=== PATIENT | male | born 1975 | race Caucasian/White ===

== ENCOUNTER 2017-02-12 04:45 | Emergency (ER) | payer SELFPAY ==
[2017-02-12] MEDS ORDERED: ASPIRIN 81 MG TABLET, CHEWABLE PO ONE (04:58)
--- NOTE | 2017-02-12 05:21 | ER Document Report ---
ED Medical Screen (RME) - General Chief Complaint: Chest Pain > 30 Stated Complaint: CHEST PAIN Time Seen by Provider: 02/12/17 05:15 Notes: 41-year-old obese male with a history of hypertension and diabetes type 2 that is not currently medicated, chief complaint of chest pain in the left side of his chest going toward his back, symptoms started while moving water bottles about 3 or so hours ago. Reports pain is worse when taking a deep breath. Denies nausea or vomiting, cough, fever, or history of the same. Denies any cardiac history. Does not smoke. Reports current pain. TRAVEL OUTSIDE OF THE [place] IN LAST 30 DAYS: No Past Medical History Renal/ Medical History: Denies: Hx Peritoneal Dialysis Physical Exam - Vital signs Vitals: Temp Pulse Resp BP Pulse Ox 98.9 F 89 20 133/88 H 96 02/12/17 05:01 02/12/17 05:01 02/12/17 05:01 02/12/17 05:01 02/12/17 05:01 - Respiratory Chest status: Tender - Tender over the left side of the chest Breath sounds: Normal. No: Decreased air movement, Rales, Rhonchi, Stridor, Wheezing - Cardiovascular Rhythm: Regular. No: Tachycardia Heart sounds: Normal auscultation, S1 appreciated, S2 appreciated Course - Re-evaluation Re-evalutation: I have greeted and performed a rapid initial assessment of this patient. A comprehensive ED assessment and evaluation of the patient, analysis of test results and completion of the medical decision making process will be conducted by additional ED providers. - Vital Signs Vital signs: Temp Pulse Resp BP Pulse Ox 98.9 F 89 20 133/88 H 96 02/12/17 05:01 02/12/17 05:01 02/12/17 05:01 02/12/17 05:01 02/12/17 05:01
[2017-02-12 05:38] LABS: ABSOLUTE BASOPHILS # (AUTO) 0.1 10^3/uL (0.0-0.2); ABSOLUTE EOSINOPHILS # (AUTO) 0.2 10^3/uL (0.0-0.6); ABSOLUTE LYMPHOCYTES (AUTO) 2.6 10^3/uL (0.5-4.7); ABSOLUTE MONOCYTES (AUTO) 0.9 10^3/uL (0.1-1.4); ABSOLUTE NEUT (AUTO) 6.7 10^3/uL (1.7-8.2); BASOPHILS % (AUTO) 0.9 % (0-2); EOSINOPHILS % (AUTO) 2.1 % (0-6); HEMATOCRIT 44.2 % (37.9-51.0); HEMOGLOBIN 14.7 g/dL (13.5-17.0); HGB HCT DIFFERENCE -0.1; LYMPHOCYTES % (AUTO) 24.6 % (13-45); MEAN CORPUSCULAR HEMOGLOBIN 28.1 pg (27.0-33.4); MEAN CORPUSCULAR HGB CONC 33.2 g/dL (32.0-36.0); MEAN CORPUSCULAR VOLUME 85 fl (80-97); MONOCYTES % (AUTO) 8.4 % (3-13); RED BLOOD COUNT 5.21 10^6/uL (4.35-5.55); RED CELL DISTRIBUTION WIDTH 14.1 % (11.5-14.0); WHITE BLOOD COUNT 10.5 10^3/uL (4.0-10.5)
--- NOTE | 2017-02-12 05:44 | RADIOLOGY REPORT (SQ) ---
EXAM DESCRIPTION: CHEST SINGLE VIEW COMPLETED DATE/TIME: 02/12/2017 5:36 am REASON FOR STUDY: cp COMPARISON: None. EXAM PARAMETERS: NUMBER OF VIEWS: One view. TECHNIQUE: Single frontal radiographic view of the chest acquired. RADIATION DOSE: NA LIMITATIONS: None. FINDINGS: LUNGS AND PLEURA: No consolidation, pneumothorax or pleural effusion. MEDIASTINUM AND HILAR STRUCTURES: No masses. Contour normal. HEART AND VASCULAR STRUCTURES: Heart normal in size. Normal vasculature. BONES: No acute findings. HARDWARE: None in the chest. IMPRESSION: No acute radiographic finding in the chest. TECHNICAL DOCUMENTATION: JOB ID: [id number]
[2017-02-12 05:49] LABS: ALANINE AMINOTRANSFERASE 40 U/L (21-72); ALBUMIN 3.9 g/dL (3.5-5.0); ALKALINE PHOSPHATASE 83 U/L (38-126); ANION GAP 8 (5-19); ASPARTATE AMINO TRANSFERASE 17 U/L (17-59); BILIRUBIN,DIRECT 0.3 mg/dL (0.0-0.4); BILIRUBIN,TOTAL 0.5 mg/dL (0.2-1.3); BLOOD UREA NITROGEN 18 mg/dL (7-20); CALCIUM 9.8 mg/dL (8.4-10.2); CARBON DIOXIDE 32 mmol/L (22-30); CHLORIDE 99 mmol/L (98-107); CREATINE KINASE 67 U/L (55-170); CREATININE RESULT 0.89 mg/dL (0.52-1.25); GLUCOSE 328 mg/dL (75-110); POTASSIUM 4.3 mmol/L (3.6-5.0); SODIUM 138.8 mmol/L (137-145)
[2017-02-12 06:02] LABS: CREATINE KINASE MB 0.38 ng/mL (<4.55)
[2017-02-12 06:05] LABS: TROPONIN I < 0.012 ng/mL
[2017-02-12] MEDS ORDERED: HYDROCHLOROTHIAZIDE 12.5 MG CAPSULE PO ONE (06:20)
--- NOTE | 2017-02-12 06:20 | ER Document Report ---
ED Cardiac - General Information source: Patient TRAVEL OUTSIDE OF THE [place] IN LAST 30 DAYS: No - HPI Patient complains to provider of: Chest pain, Chest tightness Quality of pain: Sharp, Stabbing, Tightness Chest pain radiation location: Left shoulder, Back Cardiac risk factors: Diabetes, Hypertension, + Family history Associated symptoms: Other - see above <CAILIN AJ - Last Filed: 02/12/17 06:44> <ANASTACIA MCMAHON - Last Filed: 02/12/17 10:53> - General Chief Complaint: Chest Pain > 30 Stated Complaint: CHEST PAIN Time Seen by Provider: 02/12/17 05:15 Notes: Patient is a 41 year old male who presents to the ED with complaints of a chest pain that radiates around his under arm and left shoulder with onset approximately 0300 this morning. Patient states that he was moving 1 gallon jugs from the floor into a cupboard. Patient states initially the pain was sharp and stabbing but then turned into a "bear hugging" tightness sensation. Patient states it is painful to breath. He was nauseous at first but denies any nausea currently. Patient has a history of hypertension and diabetes, he is on Metformin, Novolog and HTCZ however states that he has not been able to take his medication due to a lapse in his insurance. He has still been checking his sugar levels and states he has been running around 200. (CAILIN AJ) - Related Data Allergies/Adverse Reactions: No Known Allergies Allergy (Verified 02/12/17 05:27) Past Medical History - General Information source: Patient - Social History Smoking Status: Never Smoker Chew tobacco use (# tins/day): No Frequency of alcohol use: None Drug Abuse: None Family History: CAD, DM, Hypertension Patient has suicidal ideation: No Patient has homicidal ideation: No - Past Medical History Cardiac Medical History: Reports: Hx Hypertension Endocrine Medical History: Reports: Hx Diabetes Mellitus Type 2 Renal/ Medical History: Reports: Hx Kidney Stones Past Surgical History: Reports: Hx Cholecystectomy - Immunizations Hx Diphtheria, Pertussis, Tetanus Vaccination: No <CAILIN AJ - Last Filed: 02/12/17 06:44> Review of Systems - Review of Systems Constitutional: No symptoms reported EENT: No symptoms reported Cardiovascular: See HPI, Chest pain Respiratory: See HPI, Hurts to breathe Gastrointestinal: See HPI, Nausea Genitourinary: No symptoms reported Male Genitourinary: No symptoms reported Musculoskeletal: No symptoms reported Skin: No symptoms reported Hematologic/Lymphatic: No symptoms reported Neurological/Psychological: No symptoms reported <MADAICAILIN - Last Filed: 02/12/17 06:44> Physical Exam - General General appearance: Appears well, Alert In distress: None - HEENT Head: Normocephalic, Atraumatic Eyes: Normal Extraocular movements intact: Yes Pupils: PERRL - Respiratory Respiratory status: No respiratory distress Chest status: Tender - very noticeably tender over left chest wall around anterior chest wall into the scapular region Breath sounds: Normal Chest palpation: Tender - very noticeably tender over left chest wall around anterior chest wall into the scapular region - Cardiovascular Rhythm: Regular Heart sounds: Normal auscultation Murmur: No - Abdominal Inspection: Normal Tenderness: Nontender - Back Back: Tender - in scapular region - Extremities General upper extremity: Normal inspection, Normal ROM General lower extremity: Normal inspection, Normal ROM - Neurological Neuro grossly intact: Yes - Psychological Associated symptoms: Normal affect, Normal mood - Skin Skin Temperature: Warm Skin Moisture: Dry Skin Color: Normal <MADAICAILIN - Last Filed: 02/12/17 06:44> - Vital signs Vitals: Temp Pulse Resp BP Pulse Ox 98.9 F 89 20 133/88 H 96 02/12/17 05:01 02/12/17 05:01 02/12/17 05:01 02/12/17 05:01 02/12/17 05:01 Course - Laboratory Result Diagrams: 02/12/17 05:22 02/12/17 05:22 <CAILIN AJ - Last Filed: 02/12/17 06:44> - Laboratory Result Diagrams: 02/12/17 05:22 02/12/17 05:22 <ANASTACIA MCMAHON - Last Filed: 02/12/17 10:53> - Re-evaluation Re-evalutation: 02/12/17 10:26 Pleasant 41-year-old male with clear tenderness through his left chest wall around to his left scapula. This appears to be clearly musculoskeletal, however he has risk factors, including hypertension, diabetes, and a notable family history. Initial EKG and troponin were negative. The patient remained in the emergency department for a second troponin which was also negative. The patient has been unable to obtain his medications for diabetes and hypertension due to loss of insurance and financial issues. We have treated the patient with metformin and hydrochlorothiazide along with a small dose of metoprolol today. He also received a small dose of insulin. His sugar decreased into the 200s with 1 L of normal saline. The patient has ongoing tenderness. I discussed the case with Dr. Posadas, cardiology. He is happy to have the patient seen in his office on Wednesday. I will discharge him home with follow-up with prescriptions for metformin and hydrochlorothiazide, the medications that he was taking previously.. (ANASTACIA MCMAHON) - Vital Signs Vital signs: Temp Pulse Resp BP Pulse Ox 98.9 F 89 18 138/81 H 99 02/12/17 05:01 02/12/17 05:01 02/12/17 09:08 02/12/17 09:17 02/12/17 09:17 - Laboratory Laboratory results interpreted by me: 02/12/17 02/12/17 02/12/17 05:22 05:22 09:18 RDW 14.1 H Carbon Dioxide 32 H Glucose 328 H POC Glucose 252 H Discharge <CAILIN AJ - Last Filed: 02/12/17 06:44> <ANASTACIA MCMAHON - Last Filed: 02/12/17 10:53> - Discharge Condition: Good Disposition: HOME, SELF-CARE Instructions: Chest Wall Pain ([facility]) Additional Instructions: Your EKG and cardiac blood tests appear to be okay. You have notable tenderness on exam of your left chest wall and left upper back. Because of your family history and other risk factors, follow-up with a research administrator for reevaluation and consideration for stress testing. If you have any worsening chest pain, shortness of breath, or any other concerns, please return to the emergency department immediately for reevaluation. Receiving a prescription for Metformin and hydrochlorothiazide, medications that he previously took. Please resume these medications. Prescriptions: Hydrochlorothiazide 25 mg PO DAILY #30 tablet Metformin HCl [Glucophage 500 mg Tablet] 1,000 mg PO BID #60 tablet Referrals: HARINI POSADAS MD [ACTIVE STAFF] - Follow up in 3-5 days JERI CARTER MD [HONORARY] - Follow up in 3-5 days Scribe Attestation: 02/12/17 10:53 I personally performed the services described in the documentation, reviewed and edited the documentation which was dictated to the scribe in my presence, and it accurately records my words and actions. (ANASTACIA MCMAHON) Scribe Documentation - Scribe Written by Mele:: mele Shin, 02/12/2017, 0615 acting as scribe for :: Adriana <CAILIN AJ - Last Filed: 02/12/17 06:44>
[2017-02-12] MEDS ORDERED: METOPROLOL TARTRATE 25 MG TABLET PO ONE (06:21)
[2017-02-12] MEDS ORDERED: METFORMIN HCL 500 MG TABLET PO ONE (06:22)
[2017-02-12] MEDS ORDERED: NORMAL SALINE 1000 ML 1,000 ML IV ONE (06:29)
[2017-02-12] MEDS ORDERED: INSULIN REG, HUMAN 100 UNIT/ML 3 ML VIAL (PYX) SUBCUT ONE (07:40)
--- NOTE | 2017-02-12 08:00 | EKG REPORT ---
SEVERITY:- NORMAL ECG - SINUS RHYTHM : Confirmed by: Matt Brooks MD 12-Feb-2017 07:59:33
[2017-02-12 11:13] VITALS: BP 126/76
== END 2017-02-12 11:28 | disposition home or self-care (01) ==
LOC: ER 04:45
DX: R07.89 Other chest pain (principal); I10 Essential (primary) hypertension; T50.2X6A Underdosing of carbonic-anhydrase inhibitors, benzothiadiazides and other diuretics, initial encounter; E11.9 Type 2 diabetes mellitus without complications; T38.3X6A Underdosing of insulin and oral hypoglycemic [antidiabetic] drugs, initial encounter; Z91.120 Patient's intentional underdosing of medication regimen due to financial hardship; Z91.14 Patient's other noncompliance with medication regimen
CPT/HCPCS: 93005; 99285; 36415; 82553; 82962; 82550; 85025; 80053; 84484; 71010; 93010; J1815; J7030

== ENCOUNTER 2018-08-02 18:10 | Emergency (ER) | payer SELFPAY ==
[2018-08-02] MEDS ORDERED: KETOROLAC TROMETHAMINE INJ/PF 30 MG/1 ML SDV IV ONE (18:57)
--- NOTE | 2018-08-02 18:58 | ER Document Report ---
ED Medical Screen (RME) - General Chief Complaint: Flank Pain Stated Complaint: BACK PAIN Time Seen by Provider: 08/02/18 18:55 Notes: 42 years old male presents today with left flank pain radiating to the groin and left side of the abdomen for about a day and a half. But for the last 3-1/2 weeks was having lower back pain claims that it is radiating to the upper back. He is a sedentary worker. History of diabetes and hypertension. The pain is moderate to severe at times. Denies any hematuria or dysuria frequency or urgency. Denies any nausea vomiting. Left-sided abdominal tenderness noted on palpation. TRAVEL OUTSIDE OF THE [place] IN LAST 30 DAYS: No - Related Data Allergies/Adverse Reactions: No Known Allergies Allergy (Verified 08/02/18 18:56) Past Medical History - Social History Chew tobacco use (# tins/day): No Frequency of alcohol use: None - Past Medical History Cardiac Medical History: Reports: Hx Hypertension Endocrine Medical History: Reports: Hx Diabetes Mellitus Type 2 Renal/ Medical History: Reports: Hx Kidney Stones. Denies: Hx Peritoneal Dialysis Past Surgical History: Reports: Hx Cholecystectomy - Immunizations Hx Diphtheria, Pertussis, Tetanus Vaccination: No Physical Exam - Vital signs Vitals: Temp Pulse Resp BP Pulse Ox 97.9 F 95 16 179/97 H 97 08/02/18 18:17 08/02/18 18:17 08/02/18 18:17 08/02/18 18:17 08/02/18 18:17 Course - Vital Signs Vital signs: Temp Pulse Resp BP Pulse Ox 97.9 F 95 16 179/97 H 97 08/02/18 18:17 08/02/18 18:17 08/02/18 18:17 08/02/18 18:17 08/02/18 18:17
[2018-08-02 19:34] LABS: APPEARANCE,URINE CLEAR; BILIRUBIN,URINE NEGATIVE (NEGATIVE); COLOR,URINE YELLOW; GLUCOSE, URINE 150 mg/dL (NEGATIVE); KETONES,URINE NEGATIVE (NEGATIVE); LEUKOCYTE ESTERASE,URINE NEGATIVE (NEGATIVE); NITRITE,URINE NEGATIVE (NEGATIVE); PROTEIN,URINE NEGATIVE (NEGATIVE); URINE SPECIFIC GRAVITY 1.025; UROBILINOGEN,URINE NEGATIVE mg/dL (<2.0)
--- NOTE | 2018-08-02 19:38 | RADIOLOGY REPORT (SQ) ---
EXAM DESCRIPTION: KUB/ABDOMEN (SINGLE VIEW) COMPLETED DATE/TIME: 08/02/2018 7:24 pm REASON FOR STUDY: Abdominal pain COMPARISON: None. NUMBER OF VIEWS: One view. TECHNIQUE: Supine radiographic image of the abdomen acquired. LIMITATIONS: None. FINDINGS: BOWEL GAS PATTERN: Normal bowel gas pattern. No dilated loops. CALCIFICATIONS: No suspicious calcifications. SOFT TISSUES: No gross mass or suggestion of organomegaly. HARDWARE: None in the abdomen. BONES: No acute fracture. No worrisome bone lesions. OTHER: No other significant finding. IMPRESSION: NO RADIOGRAPHIC EVIDENCE FOR ACUTE ABDOMINAL DISEASE. TECHNICAL DOCUMENTATION: JOB ID: [id number]- All Rights Reserved Reading location - IP/workstation name: [email or web address]
[2018-08-02 20:03] LABS: ABSOLUTE BASOPHILS # (AUTO) 0.1 10^3/uL (0.0-0.2); ABSOLUTE EOSINOPHILS # (AUTO) 0.2 10^3/uL (0.0-0.6); ABSOLUTE MONOCYTES (AUTO) 0.5 10^3/uL (0.1-1.4); ABSOLUTE NEUT (AUTO) 3.8 10^3/uL (1.7-8.2); BASOPHILS % (AUTO) 1.1 % (0-2); EOSINOPHILS % (AUTO) 3.5 % (0-6); HEMATOCRIT 41.1 % (37.9-51.0); HEMOGLOBIN 14.1 g/dL (13.5-17.0); LYMPHOCYTES % (AUTO) 30.5 % (13-45); MEAN CORPUSCULAR HEMOGLOBIN 28.2 pg (27.0-33.4); MEAN CORPUSCULAR HGB CONC 34.4 g/dL (32.0-36.0); MEAN CORPUSCULAR VOLUME 82 fl (80-97); MONOCYTES % (AUTO) 7.6 % (3-13); PLATELET COUNT 243 10^3/uL (150-450); RED BLOOD COUNT 5.01 10^6/uL (4.35-5.55); RED CELL DISTRIBUTION WIDTH 13.8 % (11.5-14.0); SEGMENTED NEUTROPHILS % (AUTO) 57.3 % (42-78); TOTAL CELLS COUNTED % (AUTO) 100 %; WHITE BLOOD COUNT 6.6 10^3/uL (4.0-10.5)
--- NOTE | 2018-08-02 20:04 | ER Document Report ---
ED GI/ - General Chief Complaint: Flank Pain Stated Complaint: BACK PAIN Time Seen by Provider: 08/02/18 18:55 Primary Care Provider: [facility] [Provider Group] - Follow up as needed [facility] [Provider Group] - Follow up as needed Mode of Arrival: Ambulatory Information source: Patient Notes: Patient presents complaining of left flank pain that wraps around left lateral side to left side of abdomen patient also complains of back pain that goes up to the left thoracic area. Patient states he had pain symptoms for about 3-1/2 weeks. Patient denies any fever, nausea vomiting or diarrhea. Patient does report some urinary frequency but denies any dysuria. TRAVEL OUTSIDE OF THE [place] IN LAST 30 DAYS: No - HPI Patient complains to provider of: Abdominal pain, Flank pain. No: Diarrhea, Testicular pain, Vomiting Onset: Other - 3-1/2 weeks Timing/Duration: Persistent Quality of pain: Achy Pain Level: 4 Location: LUQ, LLQ, Left flank. No: Left testicle Sexual history: Active Associated symptoms: Urinary frequency. denies: Constipation, Diarrhea, Dysuria, Fever, Loss of appetite, Nausea, Urinary hesitancy, Urinary retention, Urinary urgency, Vomiting Exacerbated by: Denies Relieved by: Denies Similar symptoms previously: No Recently seen / treated by doctor: No - Related Data Allergies/Adverse Reactions: No Known Allergies Allergy (Verified 08/02/18 19:36) Past Medical History - General Information source: Patient - Social History Smoking Status: Never Smoker Chew tobacco use (# tins/day): No Frequency of alcohol use: None Drug Abuse: None Occupation: travel agent Lives with: Spouse/Significant other Family History: CAD, DM, Hypertension Patient has suicidal ideation: No Patient has homicidal ideation: No - Past Medical History Cardiac Medical History: Reports: Hx Hypertension Endocrine Medical History: Reports: Hx Diabetes Mellitus Type 2 Renal/ Medical History: Reports: Hx Kidney Stones. Denies: Hx Peritoneal Dialysis Past Surgical History: Reports: Hx Cholecystectomy - Immunizations Hx Diphtheria, Pertussis, Tetanus Vaccination: No Review of Systems - Review of Systems Constitutional: No symptoms reported. denies: Fever, Recent illness EENT: No symptoms reported Cardiovascular: No symptoms reported. denies: Chest pain Respiratory: No symptoms reported. denies: Cough, Short of breath Gastrointestinal: Abdominal pain. denies: Diarrhea, Nausea, Vomiting, Poor appetite Genitourinary: Frequency, Flank pain. denies: Dysuria Male Genitourinary: No symptoms reported Musculoskeletal: Back pain Skin: No symptoms reported Hematologic/Lymphatic: No symptoms reported Neurological/Psychological: No symptoms reported. denies: Weakness Physical Exam - Vital signs Vitals: Temp Pulse Resp BP Pulse Ox 97.9 F 95 16 179/97 H 97 08/02/18 18:17 08/02/18 18:17 08/02/18 18:17 08/02/18 18:17 08/02/18 18:17 - General General appearance: Appears well, Alert In distress: None - HEENT Head: Normocephalic, Atraumatic Eyes: Normal Conjunctiva: Normal Nasal: Normal Mouth/Lips: Normal Mucous membranes: Normal Neck: Normal, Supple. No: Lymphadenopathy - Respiratory Respiratory status: No respiratory distress Chest status: Nontender Breath sounds: Normal. No: Rales, Rhonchi, Stridor, Wheezing Chest palpation: Normal - Cardiovascular Rhythm: Regular Heart sounds: S1 appreciated, S2 appreciated Murmur: No - Abdominal Inspection: Normal, Morbidly Obese Distension: No distension Bowel sounds: Normal Tenderness: Tender - L side abd, L lateral side Organomegaly: No organomegaly - Back Back: CVA tenderness - left - Extremities General upper extremity: Normal inspection, Normal ROM General lower extremity: Normal inspection, Normal ROM - Neurological Neuro grossly intact: Yes Cognition: Normal [place] Coma Scale Eye Opening: Spontaneous [place] Coma Scale Verbal: Oriented [place] Coma Scale Motor: Obeys Commands [place] Coma Scale Total: 15 - Psychological Associated symptoms: Normal affect, Normal mood - Skin Skin Temperature: Warm Skin Moisture: Dry Skin Color: Normal Course - Re-evaluation Re-evalutation: 08/02/18 22:42 Patient with essentially benign diagnostic evaluation with the exception of mildly elevated glucose. No concern for DKA. Patient presents with abdominal pain without signs of peritonitis or other life-threatening or serious etiology. The patient presents with low back pain without signs of spinal cord compression, cauda equina syndrome, infection, aneurysm, or other serious etiology. The patient is neurologically intact. Given the extremely risk of these diagnoses further testing and evaluation for these possibilities does not appear to be indicated at this time. Patient has been instructed to return if the symptoms worsen or change in any way. - Vital Signs Vital signs: Temp Pulse Resp BP Pulse Ox 98.7 F 83 18 154/96 H 96 08/02/18 22:54 08/02/18 22:54 08/02/18 22:54 08/02/18 22:54 08/02/18 22:54 - Laboratory Result Diagrams: 08/02/18 19:36 08/02/18 19:36 Laboratory results interpreted by me: 08/02/18 08/02/18 18:30 19:36 Glucose 291 H Urine Glucose (UA) 150 H Urine Ascorbic Acid 40 H 08/02/18 22:42 Labs- Entire Visit 08/02/18 08/02/18 08/02/18 18:30 19:36 19:36 WBC 6.6 RBC 5.01 Hgb 14.1 Hct 41.1 MCV 82 MCH 28.2 MCHC 34.4 RDW 13.8 Plt Count 243 Seg Neutrophils % 57.3 Lymphocytes % 30.5 Monocytes % 7.6 Eosinophils % 3.5 Basophils % 1.1 Absolute Neutrophils 3.8 Absolute Lymphocytes 2.0 Absolute Monocytes 0.5 Absolute Eosinophils 0.2 Absolute Basophils 0.1 Sodium 138.9 Potassium 4.2 Chloride 101 Carbon Dioxide 30 Anion Gap 8 BUN 13 Creatinine 0.69 Est GFR ( Amer) > 60 Est GFR (Non-Af Amer) > 60 Glucose 291 H Calcium 9.9 Total Bilirubin 0.5 Direct Bilirubin 0.2 Neonat Total Bilirubin Not Reportable Neonat Direct Bilirubin Not Reportable Neonat Indirect Bili Not Reportable AST 26 ALT 34 Alkaline Phosphatase 81 Total Protein 7.0 Albumin 3.9 Lipase 72.4 Urine Color YELLOW Urine Appearance CLEAR Urine pH 5.0 Ur Specific [place] 1.025 Urine Protein NEGATIVE Urine Glucose (UA) 150 H Urine Ketones NEGATIVE Urine Blood NEGATIVE Urine Nitrite NEGATIVE Urine Bilirubin NEGATIVE Urine Urobilinogen NEGATIVE Ur Leukocyte Esterase NEGATIVE Urine WBC (Auto) 1 Urine RBC (Auto) 0 Urine Mucus (Auto) OCC Urine Ascorbic Acid 40 H - Diagnostic Test Radiology reviewed: Image reviewed, Reports reviewed Discharge - Discharge Clinical Impression: Abdominal pain Qualifiers: Abdominal location: unspecified location Qualified Code(s): R10.9 - Unspecified abdominal pain Chronic back pain Qualifiers: Back pain location: back pain in unspecified location Back pain laterality: unspecified Qualified Code(s): M54.9 - Dorsalgia, unspecified Condition: Stable Disposition: HOME, SELF-CARE Instructions: Abdominal Pain ([facility]), Antispasmodics ([facility]), Low Back Pain ([facility]), Oral Narcotic Medication ([facility]) Additional Instructions: Return immediately for any new or worsening symptoms Followup with your primary care provider, call tomorrow to make a followup appointment Prescriptions: Dicyclomine HCl [Bentyl 20 mg Tablet] 20 mg PO QID PRN #12 tablet PRN Reason: Polyethylene Glycol 3350 [Miralax] 17 gm PO DAILY #119 gm Referrals: [facility] [Provider Group] - Follow up as needed [facility] [Provider Group] - Follow up as needed
[2018-08-02] MEDS ORDERED: MORPHINE SULFATE 10 MG/ML INJ IV ONE (20:07)
[2018-08-02 20:19] LABS: ALANINE AMINOTRANSFERASE 34 U/L (21-72); ALBUMIN 3.9 g/dL (3.5-5.0); ALKALINE PHOSPHATASE 81 U/L (38-126); ANION GAP 8 (5-19); ASPARTATE AMINO TRANSFERASE 26 U/L (17-59); BILIRUBIN,DIRECT 0.2 mg/dL (0.0-0.4); BILIRUBIN,TOTAL 0.5 mg/dL (0.2-1.3); BLOOD UREA NITROGEN 13 mg/dL (7-20); CALCIUM 9.9 mg/dL (8.4-10.2); CARBON DIOXIDE 30 mmol/L (22-30); CHLORIDE 101 mmol/L (98-107); GLUCOSE 291 mg/dL (75-110); LIPASE 72.4 U/L (23-300); POTASSIUM 4.2 mmol/L (3.6-5.0); SODIUM 138.9 mmol/L (137-145)
[2018-08-02] MEDS ORDERED: NORMAL SALINE 1000 ML 1,000 ML IV ONE (20:39)
[2018-08-02] MEDS ORDERED: INSULIN REG, HUMAN 100 UNIT/ML 3 ML VIAL (PYX) SUBCUT ONE (20:52)
--- NOTE | 2018-08-02 20:53 | RADIOLOGY REPORT (SQ) ---
EXAM DESCRIPTION: XR CHEST 2 VIEWS COMPLETED DATE/TME: 08/02/2018 20:00 CLINICAL HISTORY: 42 years, Male, L thoracic pain COMPARISON: None. NUMBER OF VIEWS: TECHNIQUE: LIMITATIONS: None. FINDINGS: No evidence of pulmonary infiltrate or pleural effusion. The heart and mediastinum are unremarkable. Pulmonary vascularity appears normal. IMPRESSION: No acute finding. copyright 2010 [employer])- All Rights Reserved
--- NOTE | 2018-08-02 21:52 | RADIOLOGY REPORT (SQ) ---
CT ABDOMEN PELVIS WITH IV CONTRAST HISTORY: Left flank pain. COMPARISON: None. TECHNIQUE: CT scan of the abdomen and pelvis with IV contrast. This exam was performed according to our departmental dose-optimization program, which includes automated exposure control, adjustment of the mA and/or kV according to patient size and/or use of iterative reconstruction technique. FINDINGS: The lung bases are clear. No pleural or pericardial effusions. There is no hiatal hernia. Hepatic steatosis. The gallbladder is not seen. The spleen, pancreas, adrenal glands, and kidneys are unremarkable. No obstructing urinary stones or hydronephrosis. The pelvic organs are also unremarkable. No small bowel obstruction. The appendix is not visualized. There is no evidence of acute diverticulitis. No intraperitoneal free fluid or free air is seen. The aorta is normal caliber. No acute osseous findings are appreciated. There is a small fat-containing umbilical hernia. IMPRESSION: No acute abdominal or pelvic pathology.
[2018-08-02] MEDS ORDERED: HYDROCODONE/ACETAMINOPHEN 5-325 MG (6 TAB/ER DISP) PO PRN (22:44)
[2018-08-02 22:55] VITALS: BP 154/96
== END 2018-08-02 22:55 | disposition home or self-care (01) ==
LOC: ER 18:10
DX: R10.9 Unspecified abdominal pain (principal); M54.9 Dorsalgia, unspecified; R35.0 Frequency of micturition; I10 Essential (primary) hypertension; E11.9 Type 2 diabetes mellitus without complications; Z87.442 Personal history of urinary calculi; Z90.49 Acquired absence of other specified parts of digestive tract
CPT/HCPCS: 99284; 96361; 96374; 96375; 36415; 83690; 85025; 80053; 81001; 71046; 74018; 74177; J1885; J2270; J1815; J7030

== ENCOUNTER 2019-06-30 18:04 | Emergency (ER) | payer SELFPAY ==
[2019-06-30] MEDS ORDERED: ONDANSETRON HCL INJ/PF 4 MG/2 ML SDV IV ONE (18:32)
[2019-06-30] MEDS ORDERED: KETOROLAC TROMETHAMINE INJ/PF 30 MG/1 ML SDV IV ONE (18:32)
[2019-06-30] MEDS ORDERED: NORMAL SALINE 1000 ML 1,000 ML IV ONE (18:32)
[2019-06-30] MEDS ORDERED: MORPHINE SULFATE 10 MG/ML INJ IV ONE (18:32)
--- NOTE | 2019-06-30 18:34 | ER Document Report ---
ED Medical Screen (RME) - General Chief Complaint: Abdominal Pain Stated Complaint: ABDOMINAL PAIN, BACK PAIN Time Seen by Provider: 06/30/19 18:30 Mode of Arrival: Wheelchair Information source: Patient Notes: Otherwise healthy 43-year-old male presenting to the emergency department with acute onset left flank pain and left lower quadrant abdominal pain. Patient is diaphoretic, he reports associated nausea. He does report a history of kidney stones, states this feels different. He is also and a insulin dependent diabetic. I have greeted and performed a rapid initial assessment of this patient. A comprehensive ED assessment and evaluation of the patient, analysis of test results and completion of the medical decision making process will be conducted by additional ED providers. I have specifically instructed the patient or family members with the patient to immediately return to any nursing staff should anything change in the patient's condition or with their chief complaint. TRAVEL OUTSIDE OF THE [place] IN LAST 30 DAYS: No - Related Data Allergies/Adverse Reactions: No Known Allergies Allergy (Verified 06/30/19 18:25) Past Medical History - Past Medical History Cardiac Medical History: Reports: Hx Hypertension Endocrine Medical History: Reports: Hx Diabetes Mellitus Type 2 Renal/ Medical History: Reports: Hx Kidney Stones. Denies: Hx Peritoneal Dialysis Past Surgical History: Reports: Hx Cholecystectomy - Immunizations Hx Diphtheria, Pertussis, Tetanus Vaccination: No Physical Exam - Vital signs Vitals: Temp Pulse Resp BP Pulse Ox 97.5 F 96 24 H 142/101 H 100 06/30/19 18:10 06/30/19 18:10 06/30/19 18:10 06/30/19 18:10 06/30/19 18:10 Course - Vital Signs Vital signs: Temp Pulse Resp BP Pulse Ox 97.5 F 96 24 H 142/101 H 100 06/30/19 18:10 06/30/19 18:10 06/30/19 18:10 06/30/19 18:10 06/30/19 18:10
[2019-06-30 19:39] LABS: ABSOLUTE BASOPHILS # (AUTO) 0.1 10^3/uL (0.0-0.2); ABSOLUTE EOSINOPHILS # (AUTO) 0.1 10^3/uL (0.0-0.6); ABSOLUTE MONOCYTES (AUTO) 0.6 10^3/uL (0.1-1.4); ABSOLUTE NEUT (AUTO) 7.6 10^3/uL (1.7-8.2); BASOPHILS % (AUTO) 0.8 % (0-2); EOSINOPHILS % (AUTO) 1.4 % (0-6); HEMATOCRIT 45.1 % (37.9-51.0); HEMOGLOBIN 15.5 g/dL (13.5-17.0); LYMPHOCYTES % (AUTO) 19.5 % (13-45); MEAN CORPUSCULAR HGB CONC 34.4 g/dL (32.0-36.0); MEAN CORPUSCULAR VOLUME 81 fl (80-97); PLATELET COUNT 234 10^3/uL (150-450); RED BLOOD COUNT 5.55 10^6/uL (4.35-5.55); RED CELL DISTRIBUTION WIDTH 13.7 % (11.5-14.0); SEGMENTED NEUTROPHILS % (AUTO) 72.3 % (42-78); TOTAL CELLS COUNTED % (AUTO) 100 %; WHITE BLOOD COUNT 10.5 10^3/uL (4.0-10.5)
[2019-06-30 19:56] LABS: ALBUMIN 4.4 g/dL (3.5-5.0); ALKALINE PHOSPHATASE 93 U/L (38-126); ANION GAP 13 (5-19); ASPARTATE AMINO TRANSFERASE 35 U/L (17-59); BILIRUBIN,TOTAL 0.8 mg/dL (0.2-1.3); BLOOD UREA NITROGEN 13 mg/dL (7-20); CALCIUM 10.1 mg/dL (8.4-10.2); CARBON DIOXIDE 27 mmol/L (22-30); CHLORIDE 96 mmol/L (98-107); GLUCOSE 299 mg/dL (75-110); TOTAL PROTEIN 7.7 g/dL (6.3-8.2)
[2019-06-30 20:09] LABS: APPEARANCE,URINE CLEAR; BILIRUBIN,URINE NEGATIVE (NEGATIVE); COLOR,URINE YELLOW; GLUCOSE, URINE >=500 mg/dL (NEGATIVE); KETONES,URINE 20 mg/dL (NEGATIVE); LEUKOCYTE ESTERASE,URINE NEGATIVE (NEGATIVE); NITRITE,URINE NEGATIVE (NEGATIVE); PROTEIN,URINE NEGATIVE (NEGATIVE); URINE SPECIFIC GRAVITY 1.026; UROBILINOGEN,URINE NEGATIVE mg/dL (<2.0)
[2019-06-30] MEDS ORDERED: HYDROMORPHONE HCL INJ/PF 2 MG/ML AMPULE IV ONE ×2 (20:51→21:17)
--- NOTE | 2019-06-30 21:05 | RADIOLOGY REPORT (SQ) ---
EXAM DESCRIPTION: CT ABDOMEN PELVIS WITH IV CONTRAST COMPLETED DATE/TME: 06/30/2019 18:33 CLINICAL HISTORY: 43 years, Male, LLQ pain COMPARISON: 08/02/2018 CT TECHNIQUE: 486 Images stored on PACS. All CT scanners at this facility use dose modulation, iterative reconstruction, and/or weight based dosing when appropriate to reduce radiation dose to as low as reasonably achievable (ALARA). [facility]: Dose Right [facility]: CareDose [facility]: Dose Right [facility]: Teradose 4D [facility]: [employer] LIMITATIONS: None. FINDINGS: Limited evaluation of the lung bases is unremarkable. Osseous structures are grossly intact. Fatty infiltrative change to the liver. Splenic granulomata. The adrenal glands, pancreas, and right kidney are unremarkable. Edematous appearance to the left kidney with mild left hydroureteronephrosis secondary to an approximately 2 mm left UVJ calculus. No gross evidence for bowel obstruction. No free air or free fluid. Appendix is not well seen. No pericecal inflammation IMPRESSION: Mild left hydroureteronephrosis with mild edema of the left kidney secondary to a 2 mm left UVJ calculus TECHNICAL DOCUMENTATION: Quality ID # [id number]: Final reports with documentation of one or more dose reduction techniques (e.g., Automated exposure control, adjustment of the mA and/or kV according to patient size, use of iterative reconstruction technique) copyright 2011 [employer]- All Rights Reserved
[2019-06-30] MEDS ORDERED: PROMETHAZINE HCL INJ 25 MG/1 ML VIAL IV ONE (21:17)
[2019-06-30] MEDS ORDERED: TAMSULOSIN HCL 0.4 MG CAP.SR.24H PO ONE (21:18)
--- NOTE | 2019-06-30 22:13 | ER Document Report ---
Entered by SUMEET BUTTERFIELD SCRIBE 06/30/[id number] Acting as scribe for:ERASMO RIVERA IV, MD ED GI/ - General Chief Complaint: Flank Pain Stated Complaint: ABDOMINAL PAIN, BACK PAIN Time Seen by Provider: 06/30/19 18:30 Mode of Arrival: Wheelchair Information source: Patient Notes: This 43 year old male patient presents to the ED today with complaints of sudden onset left-sided flank pain with radiation to the LLQ of his abdomen that began around 5:30 PM today. Patient reports increased nausea that comes and goes depending on the pain and chills, but denies a fever. Patient received a dose of Dilaudid approximately 15 minutes prior to exam and at bedside states that the patient appears to be the most calm he's ever been since his arrival to the ED. states that she "has never seen him like this before" in response to his obvious distress. Patient does have a history of kidney stones. TRAVEL OUTSIDE OF THE [place] IN LAST 30 DAYS: No - Related Data Allergies/Adverse Reactions: No Known Allergies Allergy (Verified 06/30/19 18:25) Past Medical History - General Information source: Patient - Social History Smoking Status: Never Smoker Cigarette use (# per day): No Chew tobacco use (# tins/day): No Smoking Education Provided: No Frequency of alcohol use: None Drug Abuse: None Family History: Reviewed & Not Pertinent, CAD, DM, Hypertension Patient has suicidal ideation: No Patient has homicidal ideation: No - Past Medical History Cardiac Medical History: Reports: Hx Hypertension Endocrine Medical History: Reports: Hx Diabetes Mellitus Type 2 Renal/ Medical History: Reports: Hx Kidney Stones Past Surgical History: Reports: Hx Cholecystectomy - Immunizations Hx Diphtheria, Pertussis, Tetanus Vaccination: No Review of Systems - Review of Systems Constitutional: See HPI, Chills. denies: Fever EENT: No symptoms reported Cardiovascular: No symptoms reported Respiratory: No symptoms reported Gastrointestinal: See HPI, Abdominal pain, Nausea Genitourinary: See HPI, Flank pain Male Genitourinary: No symptoms reported Musculoskeletal: No symptoms reported Skin: No symptoms reported Hematologic/Lymphatic: No symptoms reported Neurological/Psychological: No symptoms reported -: Yes All other systems reviewed and negative Physical Exam - Vital signs Vitals: Temp Pulse Resp BP Pulse Ox 97.5 F 96 24 H 142/101 H 100 06/30/19 18:10 06/30/19 18:10 06/30/19 18:10 06/30/19 18:10 06/30/19 18:10 - General General appearance: Alert, Other - Appears uncomfortable - HEENT Head: Normocephalic, Atraumatic Eyes: Normal Pupils: PERRL - Respiratory Respiratory status: No respiratory distress Chest status: Nontender Breath sounds: Normal Chest palpation: Normal - Cardiovascular Rhythm: Regular Heart sounds: Normal auscultation - No aortic bruit appreciated. Murmur: No - Abdominal Inspection: Normal Distension: No distension Bowel sounds: Normal Tenderness: Nontender - Abdomen soft Organomegaly: No organomegaly - Back Back: Normal, Nontender - Extremities General upper extremity: Normal inspection General lower extremity: Normal inspection - Neurological Neuro grossly intact: Yes - Psychological Associated symptoms: Normal affect, Normal mood - Skin Skin Temperature: Warm Skin Moisture: Diaphoretic Skin Color: Normal Course - Re-evaluation Re-evalutation: 06/30/19 22:51 Patient is lying in bed in no acute distress at this time. is appreciative of care and states it seems his pain is well controlled at this point. Patient currently does not have insurance. The patient's asked if this MD could write prescriptions for metformin and the lisinopril/hydrochlorothiazide that he used to be on. This MD agreed to do this. All questions were answered prior to discharge. When asked if everything was explained in a manner that was understandable in terms of the patient's ER visit, patient's answered in the affirmative. - Vital Signs Vital signs: Temp Pulse Resp BP Pulse Ox 97.5 F 96 24 H 142/101 H 100 06/30/19 18:10 06/30/19 18:10 06/30/19 18:10 06/30/19 18:10 06/30/19 18:10 - Laboratory Result Diagrams: 06/30/19 19:15 06/30/19 19:15 Laboratory results interpreted by me: 06/30/19 06/30/19 19:15 19:15 Sodium 135.6 L Chloride 96 L Glucose 299 H Urine Glucose (UA) >=500 H Urine Ketones 20 H Urine Blood LARGE H - Diagnostic Test Radiology reviewed: Reports reviewed Discharge - Discharge Clinical Impression: Calculus of distal left ureter Condition: Good Disposition: HOME, SELF-CARE Additional Instructions: Return to the Emergency Department without delay if any worse. Kidney Stone You are passing or have passed a kidney stone. These stones are usually due to increased calcium or uric acid concentrations in your urine. Stones within the kidney itself are not painful. The pain occurs as the stone leaves the kidney to pass down the long tube, called the ureter, leading to the bladder. If the stone is small, it will usually pass by itself. Most patients can pass the stone at home. You will usually receive medications for pain, nausea or vomiting, and sometimes a medication to assist in passing the kidney stone. However, if the pain is very severe or if vomiting prevents you from taking oral pain medications, you may need to return for further treatment. Drink three or four quarts of fluids per day. You will be given pain medication (if needed) and urine strainers. Strain all your urine to see if the stone passes. If your doctor has asked you to bring the stone in for analysis, return with the stone once it has passed. Return if pain or vomiting become severe, if you develop a high fever, if you are unable to pass your urine, or if other unusual symptoms occur. HOME CARE INSTRUCTIONS & INFORMATION: Thank you for choosing us for your medical needs. We hope you're satisfied with the care you received. After you leave, you must properly care for your problem and, at the same time, observe its progress. Any condition can change. Some illnesses can change rapidly over hours or days. If your condition worsens, return to the Emergency Department or see your physician promptly. ABOUT YOUR X-RAYS AND EKG'S: If you had an EKG or X-rays taken, they have been read by the Emergency Physician. The X-rays and EKG's will also be read by a Radiologist or Silver Recovery Operator within 24 hours. If discrepancies are noted, you will be notified by telephone. Please be certain the ED has a correct telephone number & address where you can be reached. Also, realize that some fractures or abnormalities do not show up on initial X-rays. If your symptoms continue, see your physician. ABOUT YOUR LABORATORY TEST: If you had laboratory tests, the results have been reviewed by the Emergency Physician. Some test results (for example cultures) may not be available for several days. You will be contacted if any test result shows you need additional treatment. Please be certain the ED has a correct telephone number and address where you can be reached. ABOUT YOUR MEDICATIONS: You will receive instructions on how to take your me dicine on the prescription label you receive. Additional information may be provided by the Pharmacy. If you have questions afterwards, call the ED for clarification or further instructions. Some prescribed medications may cause drowsiness. Do not perform tasks such as driving a car or operating machinery without consulting your Pharmacist. If you feel you need a refill of pain medication, your condition will need re-evaluation. Please do not call for a refill of any medication. ABOUT YOUR SIGNATURE: Signature of this document acknowledges to followin. Understanding that you received emergency treatment and that you may be released before al medical problems are known or treated. Please be certain the ED has a correct phone number & address where you can be reached. 2. Acknowledgement that you will arrange for follow-up care as recommended. 3. Authorization for the Emergency Physician to provide information to your follow-up Physician in order to maximize your care. AT ANY TIME, IF YOUR SYMPTOMS CHANGE SIGNIFICANTLY OR WORSEN OR YOU DEVELOP NEW SYMPTOMS, RETURN TO THE EMERGENCY DEPARTMENT IMMEDIATELY FOR RE-EVALUATION. OUR GOAL IS TO PROVIDE EXCELLENT MEDICAL CARE! WE HOPE THAT WE HAVE MET YOUR EXPECTATIONS DURING YOUR EMERGENCY DEPARTMENT VISIT AND THAT YOU FEEL YOU HAVE RECEIVED EXCELLENT CARE! Prescriptions: Tamsulosin HCl [Flomax 0.4 mg Cap.sr] 0.4 mg PO DAILY #7 cap.sr.24h Metformin HCl [Glucophage 500 mg Tablet] 1,000 mg PO BID #120 tablet Lisinopril/Hydrochlorothiazide [Lisinopril-Hctz 20-12.5 mg Tab] 1 each PO DAILY #30 tablet Oxycodone HCl/Acetaminophen [Percocet 5-325 mg Tablet] 1 - 2 tab PO Q4H PRN #20 tablet PRN Reason: Promethazine HCl [Phenergan 25 mg Tablet] 1 tab PO Q6H PRN #15 tablet PRN Reason: Referrals: JERI CARTER MD [HONORARY] - Follow up as needed I personally performed the services described in the documentation, reviewed and edited the documentation which was dictated to the scribe in my presence, and it accurately records my words and actions.
[2019-06-30] MEDS ORDERED: HYDROCODONE/ACETAMINOPHEN 5-325 MG (6 TAB/ER DISP) PO PRN (22:54)
[2019-06-30 23:15] VITALS: BP 114/65
== END 2019-06-30 23:15 | disposition home or self-care (01) ==
LOC: ER 18:04
DX: N20.1 Calculus of ureter (principal); R10.9 Unspecified abdominal pain; R10.32 Left lower quadrant pain; I10 Essential (primary) hypertension; E11.9 Type 2 diabetes mellitus without complications
CPT/HCPCS: 96376; 99284; 96361; 96374; 96375; 36415; 83690; 85025; 80053; 81001; 74177; J1885; J2270; J1170; J2550; J2405; J7030